=== PATIENT | female | born 1935 | race Caucasian/White ===

== ENCOUNTER 2016-10-22 13:00 | Inpatient (IN) | payer MEDICARE, BC ==
[~2016-10-22] VITALS: Ht 160 cm; Wt 66.8 kg
--- NOTE | ~2016-10-22 | HP ---
PATIENT'S NAME: TIM DANIELLE [facility] AGE: 81 Y [address] ROOM: [address] [address] LOCATION: [facility] ADMIT DATE: 10/22/2016 History & Physical DISCHARGE DATE: FAMILY PHYSICIAN: Jada Salazar MD ATTENDING PHYSICIAN: PATRICK RAI DATE OF SERVICE: CHIEF COMPLAINT: Leukocytosis and 1 set of a blood culture positive for gram-positive rods from the outside facility and the outside facility is concerned about meningitis; therefore, the patient has been sent over here for further workup. HISTORY OF PRESENT ILLNESS: This is an 81-year-old, female, who has a longstanding history of hypertension, on multiple medications including clonidine, who was recently changed from p.o. clonidine to clonidine patch and her blood pressure went up, up to 300 during the change from p.o. to clonidine patch. The patient was complaining of headache, this happened last Thursday, October 20, 2016, and the patient went to the emergency room because of the headache and blood pressure in the 300 at the outside facility, and the patient was admitted over there in [place] for hypertensive crisis. The patient was put back on the clonidine p.o. tablets and also put on several medications including IV labetalol drip followed by nitroglycerin drip and also hydralazine p.r.n. Eventually blood pressure was able to be controlled down to the 140. However, she also was found to have a leukocytosis and 1 set of blood culture was obtained, which grew gram-positive rods; therefore, there was a concern about possible meningitis from Listeria. Therefore, a CT of the brain was performed in [place] on October 21, 2016, and it showed a right occipital ventricular shunt in place. No change in ventricular size compared to September 05, 2015. No evidence of acute intracranial abnormality. The patient has a history of normal pressure hydrocephalus and underwent a ventriculoperitoneal shunt few years ago. The patient also had an x-ray of the head performed on October 21, 2016, showed no catheter disruption. She also had a KUB on October 21, 2016, showed that the right occipital ventricular shunt in place. No catheter disruption. The tip overlies the pelvis. No focal consolidation. No effusion. No pneumothorax. No destructive bony lesion. 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 The blood culture that grew positive for gram-positive rods was performed on October 20, 1016, and is still preliminary. I tried to ask the Pamela if 2 sets were drawn or just 1 set, but they could not really tell me the answer, because they did not know. White blood cell was found to be 18.5 on October 22, 2016, with an absolute neutrophil count elevated at 15.76. Because of the concern for meningitis, the patient was sent over here for a higher level of PATIENT'S NAME: TIM DANIELLE [facility] AGE: 81 Y [address] ROOM: [address] [place], [place] [address] LOCATION: [facility] ADMIT DATE: 10/22/2016 History & Physical DISCHARGE DATE: FAMILY PHYSICIAN: Jada Salazar MD ATTENDING PHYSICIAN: PATRICK RAI. During my interview, the patient is asymptomatic and does not look septic. Denies any headache, denies any neck stiffness, denies any photophobia, and denies any nausea or vomiting. Upon further questioning, the patient has been having headache when her blood pressure went up to 300 from the hypertensive urgency at that time on admission to [facility]. When she was on nitroglycerin drip, her headache also continued; however, when they stopped the nitroglycerin today this morning, the headache went away after given morphine. Upon further questioning, the patient's daughter at the bedside told me that last night when she was in [facility], she became confused where she described as talking nonsense, but not slurred speech, but just confused and did not know where she was and a bit restless as well. I asked the daughter if she behaved like this every night which could be delirium, but the daughter was not quite sure. The patient has no recollection whatsoever about the confusion that she was having last night. Currently, she is alert and oriented x3 and in no acute distress. REVIEW OF SYSTEMS: As mentioned in the history of present illness. All other systems reviewed and negative except those mentioned in the history of present illness. PAST MEDICAL HISTORY: 1. Rheumatoid arthritis. 2. Coronary artery disease, status post stent x1 in 2010. 3. Diabetes insipidus. 4. Hypertension. 5. Normal pressure hydrocephalus, status post ventriculoperitoneal shunt in 2013. 6. Constipation. 7. Depression. 8. Obstructive sleep apnea, noncompliant on CPAP. 9. Gastroesophageal reflux disease. ALLERGIES: 1. ISAI INHIBITOR AND ARB (ANGIOEDEMA). 2. SULFA (RASH). 3. IV CONTRAST (ANGIOEDEMA). HOME MEDICATIONS: 1. Desmopressin 1 spray to nose b.i.d. 2. Trazodone 50 mg at bedtime p.o. 3. Methotrexate 15 mg p.o. every 7 days. PATIENT'S NAME: TIM DANIELLE [facility] AGE: 81 Y [address] ROOM: [address] [place] [id number] LOCATION: [facility] ADMIT DATE: 10/22/2016 History & Physical DISCHARGE DATE: FAMILY PHYSICIAN: Jada Salazar MD ATTENDING PHYSICIAN: PATRICK RAI 4. Lopressor 200 mg p.o. daily. 5. Folic acid 1 mg p.o. b.i.d. 6. Calcium carbonate 600 mg p.o. daily. 7. Aspirin 81 mg p.o. daily. 8. Colace 100 mg p.o. b.i.d. 9. Multivitamin 1 tablet p.o. daily. 10. Clara 180 mg p.o. daily. 11. Calcium polycarbophil 1250 mg p.o. daily. 12. Protonix 40 mg p.o. daily. 13. Cozaar 100 mg p.o. at bedtime. 14. Vitamin D 1000 units p.o. daily. 15. Tylenol 650 mg p.o. every 6 hours p.r.n. for pain or fever. 16. Flonase 1 spray to nose b.i.d. 17. Nitroglycerin 0.4 mg sublingual every 5 minutes p.r.n. for chest pain. 18. Zofran 4 mg p.o. every 6 hours p.r.n. for nausea or vomiting. 19. Clonidine 0.3 mg transdermal patch every 7 days. SOCIAL HISTORY: The patient denies any cigarette, alcohol, or illegal drug use. PAST SURGICAL HISTORY: 1. Status post drug-eluting stent x1 in 2010. 2. Status post ventriculoperitoneal shunt in the past. 3. Status post lower back surgery in the past. 4. Status post left carotid endarterectomy in the past. FAMILY HISTORY: Father from stroke at advanced age. Mother from old age from a cause that she could not remember. PHYSICAL EXAMINATION: VITAL SIGNS: At the time of my dictation, blood pressure 181/77, temperature 98.8, heart rate 74, respirations 14, and saturation 100% on 2 L nasal cannula. Pain 0/10. GENERAL APPEARANCE: Alert and oriented x3, in no acute distress. The patient is not in distress. The patient does not look acutely ill or septic. HEENT: Pupils equal, round, and reactive to light. Extraocular muscles intact. Visual field intact in both eyes. Anicteric sclerae. Nasal turbinates are normal bilaterally. Moist oral mucosa. No oral thrush. NECK: No JVD. No neck stiffness. Brudzinski sign negative. No carotid bruits. No cervical lymphadenopathy. CARDIOVASCULAR: Regular rate and rhythm. Normal S1, S2. No murmur, no rubs, no gallops. RESPIRATORY: Clear. Chest wall nontender to palpation. ABDOMEN: Soft, nontender, nondistended, normal bowel sounds, no PATIENT'S NAME: TIM DANIELLE [facility] AGE: 81 Y [address] ROOM: [address] [address] LOCATION: [facility] ADMIT DATE: 10/22/2016 History & Physical DISCHARGE DATE: FAMILY PHYSICIAN: Jada Salazar MD ATTENDING PHYSICIAN: PATRICK RAI hepatosplenomegaly. EXTREMITIES: No edema in upper or lower extremities. SKIN: She does have a petechia type of rash in her bilateral upper extremity all the way from the hand, all the way to mid arm. This is not pruritic. She said this happened about 2 days ago. MUSCULOSKELETAL: No joint pain. No muscle pain. Range of motion intact. NEUROLOGIC: Grossly nonfocal. Brudzinski and Kernig sign negative. LABORATORY DATA: Laboratory data from the outside facility today shows sodium 139, potassium 3.7, chloride 98, anion gap 16.2, carbon dioxide 28, glucose 108, BUN 17, creatinine 0.7, and GFR 80. Calcium 9.4, total protein 6.6, globulin 3.2, albumin 3.4, AST 35, ALT 32, alkaline phosphatase 76, and total bilirubin 0.7. White blood cells 18.5, hemoglobin 12.5, hematocrit 36.6, MCV 91.3, and platelet 276. IMAGES STUDY AND MIGHT MICROBIOLOGY STUDY: Refer to history of present illness. ASSESSMENT/PLAN: 1. Hypertensive urgency. She has no symptoms right now, therefore her hypertension is classified as hypertensive urgency. There is no end- organ damage either at the moment. Her blood pressure currently is 200, she has been having this problem since last Friday, it has been quite a few days; therefore, the plan is not to lower the blood pressure too fast. I would not lower more than 25% in the 1st for 24 hours. Therefore, her goal today will be 150-160 in the next 24 hours. I will start her on the IV labetalol p.r.n. and IV hydralazine p.r.n. with holding parameter. Check blood pressure every 2 hours and document in the [employer]. I will stop her clonidine patch and put her on the clonidine p.o. tablet as how she was taking before and also add Toprol-XL p.o. 50 mg every night and also amlodipine 10 mg p.o. every morning. Check blood pressure every 2 hours and titrate as necessary. 2. Questionable meningitis: She does not look septic. She does not have any symptoms that go with meningitis. I think her meningitis which is very low likelihood and the blood culture probably is likely from contamination. Pamela could not tell me if there are 2 sets of blood culture or just 1 set, because they could not find the report of the other set of blood culture. Probably, the blood culture could be a contamination; however, in the setting of leukocytosis and she is on immunosuppression, she takes immunosuppressants for her rheumatoid arthritis, therefore, she is classified as an immunosuppressed patient. To clear all doubts, I will go ahead and do a lumbar puncture. 2 sets of blood cultures had already been obtained. She was already given 1 dose of IV vancomycin, 1 dose of IV ceftriaxone, and 1 dose of IV ampicillin prior to coming here per PATIENT'S NAME: TIM DANIELLE [facility] AGE: 81 Y [address] ROOM: [id number] [place], [place] [address] LOCATION: [facility] ADMIT DATE: 10/22/2016 History & Physical DISCHARGE DATE: FAMILY PHYSICIAN: Jada Salazar MD ATTENDING PHYSICIAN: PATRICK RAI verbal order given by me. Now having seen her, she does not look she has meningitis, she looks too well to have meningitis, but just to be sure, I will go ahead and do the lumbar puncture just to be safe. For now, I will continue her regimen but with IV vancomycin, IV cefepime, and also IV ampicillin empirically covering for the meningitis including a possibility of Listeria. I will get an ID consult tomorrow as well because it is Friday. Further plan depends on clinical course. She looks too well, therefore, I am not going to cover with IV acyclovir given that she has no neurologic deficits, she has no seizure activity, she has no confusion at the moment. Further plan depends on clinical course. 3. History of normal pressure hydrocephalus, status post ventriculoperitoneal shunt: No active issue. CT of the head showed the shunt is intact. There is no finding to suggest acute hydrocephalus. 4. Diabetes insipidus: Continue the desmopressin. 5. DVT prophylaxis. The patient will be on Lovenox subcu. CODE STATUS: She is a full code. Time spent on the day of admission 40 minutes including chart review, interviewing and examining the patient, addressing all the questions and concerns that the patient had, and going over the plan of care with the patient, nursing staff, and the patient's family members at the bedside. PATRICK RAI MD CC/modl /[id number] D: 850 T: HISTORY & PHYSICAL
--- NOTE | ~2016-10-22 | PUL ---
PATIENT'S NAME: TIM DANIELLE [facility] AGE: 81 Y [address] ROOM: [place] [address] LOCATION: [facility] ADMIT DATE: 10/23/2016 Pulmonary DISCHARGE DATE: 10/29/2016 FAMILY PHYSICIAN: Jada Salazar MD ATTENDING PHYSICIAN: Fabio Sargent NAME OF PROCEDURE: Overnight Pulse Oximetry DATE OF PROCEDURE: October 282016 REASON FOR EXAM: Nocturnal Hypoxemia RESULTS: The test was performed on room air while on patient's own CPAP machine. The recording time was 9 hours, 47 minutes, and 36 seconds, with a total valid sampling time of 9 hours, 38 minutes, and 24 seconds. The highest pulse was 93, lowest pulse 64, with a mean pulse of 75. The highest SpO2 was 98%, lowest SpO2 was 85%, with a mean SpO2 was 93.5%. The patient spent 6 minutes and 24 seconds with SpO2 less than 89%, representing 1.1% of the total sleep time. The desaturation event index was normal at 4.9. PHYSICIAN INTERPRETATION: The patient has significant but mild nocturnal hypoxia and would qualify for supplemental oxygen as per Medicare criteria. OLEKSANDR EMANUEL MD RFOmaira/ks /[id number] dtt: 11/01/16 1524 , OLEKSANDR EMANUEL dtd: 11/01/16 1054
--- NOTE | ~2016-10-22 | CON ---
PATIENT'S NAME: TIM DANIELLE [facility] AGE: 81 Y [address] ROOM: [address] [place], [place] [address] LOCATION: [facility] ADMIT DATE: 10/23/2016 Consultation DISCHARGE DATE: FAMILY PHYSICIAN: Jada Salazar MD ATTENDING PHYSICIAN: PATRICK RAI DATE OF CONSULTATION: 10/23/2016 REFERRING PHYSICIAN: Garrett Berumen MD REASON FOR CARDIOLOGY CONSULT: Chest pain. HISTORY OF PRESENT ILLNESS: This is an 81-year-old female, admitted with a leukocytosis and concern for a meningitis. She was also admitted with a hypertensive emergency. She had positive blood cultures drawn in [place], [place], and was transferred to [facility] for higher level of care and further evaluation. Her history includes coronary artery disease with stenting [place] [address] Baker. She has had a most recent office visit with him in [place], [place], where she states she underwent an echocardiogram and was stable from a cardiac standpoint other than her transitioning blood pressure medications recently. Her other history includes hypertension and heart murmur. She also complains of some recent nausea and headache. She recently underwent an EGD and colonoscopy, which showed gastroparesis, but she was not started on any medications at this time for that. She has a history of normal pressure hydrocephalus and does have a shunt in place. At the time of this consult, her main complaint is having upper epigastric pressure, which she describes as "felt like I was deflating." This, the patient was noted after she was given IV hydralazine as well as IV nitroglycerin for her hypertension. At this time, she is resting comfortably in bed. She does have a nonproductive cough, but denies further chest pain or pressure as well as palpitations, presyncope, syncope, or nausea. PAST MEDICAL HISTORY: 1. Coronary artery disease. 2. Hypertension. 3. Obstructive sleep apnea with CPAP use. 4. GERD. 5. Gastroparesis. 6. Rheumatoid arthritis. 7. History of diabetes insipidus. 8. Normal pressure hydrocephalus with a ventriculoperitoneal shunt, which was placed in 2013. 9. History of depression. PAST SURGICAL HISTORY: 1. Coronary artery stenting, last in 2010. [facility]GE: 81 Y [address] ROOM: [address] [address] LOCATION: [facility] ADMIT DATE: 10/23/2016 Consultation DISCHARGE DATE: FAMILY PHYSICIAN: Jada Salazar MD ATTENDING PHYSICIAN: PATRICK RAI 2. Ventriculoperitoneal shunt. 3. Left carotid endarterectomy. 4. Lower back surgery. FAMILY HISTORY: The patient's father had a history of stroke. Her mother had a history of uterine cancer. She also has an uncle, who due to a myocardial infarction. SOCIAL HISTORY: The patient denies ever using tobacco. She also denies alcohol or illicit drug use. CURRENT MEDICATIONS: 1. Heparin IV per ACS protocol. 2. Vancomycin 1.25 grams IV every 18 hours. 3. DDAVP intranasally twice daily. 4. Flonase 50 mcg intranasally b.i.d. 5. Aspirin 81 mg p.o. daily. 6. Catapres 0.2 mg p.o. twice daily. 7. Colace 100 mg p.o. twice daily. 8. Cozaar 100 mg p.o. daily. 9. Desyrel 50 mg p.o. daily in the evening. 10. FiberCon 2 tablets p.o. daily. 11. Folic acid 1 mg p.o. twice daily. 12. Lipitor 80 mg p.o. daily. 13. Lopressor 25 mg p.o. twice daily. 14. MiraLax 17 grams p.o. daily. 15. Norvasc 5 mg p.o. daily in the evening. 16. Os-Kushal 500 mg p.o. daily. 17. Protonix 40 mg p.o. daily. 18. Multivitamin 1 tablet p.o. daily. 19. Vitamin D 1000 units p.o. daily. MEDICATION ALLERGIES: 1. ISAI inhibitors and angiotensin receptor blockers. Both of them cause angioedema. 2. Sulfa causing upset stomach. REVIEW OF SYSTEMS: A 12-point review of systems evaluated and negative except for those listed in the HPI. DIAGNOSTICS: CMS evaluation shows a sodium of 137, potassium 3.6, BUN of 20, creatinine PATIENT'S NAME: TIM DANIELLE [facility] AGE: 81 Y [address] ROOM: [address] [place], [place] [address] LOCATION: [facility] ADMIT DATE: 10/23/2016 Consultation DISCHARGE DATE: FAMILY PHYSICIAN: Jada Salazar MD ATTENDING PHYSICIAN: PATRICK RAI 0.6, glucose of 101, and a magnesium of 2.0. CBC evaluation shows a white blood cell count of 13, hemoglobin 12.1, hematocrit 36.6, and a platelet of 228. Cardiac enzymes show a CPK of 232, then 158; CK-MB of 2.7 and 3.3; and troponin I of less than 0.04 and 0.66. PHYSICAL EXAMINATION: VITAL SIGNS: Temperature 98.3, pulse 71, respirations 16, blood pressure 112/56, and O2 saturation 94% on 3 L nasal cannula. The patient weighs 68.4 kg. SKIN: [place], warm, and dry. She does have some noted petechiae to her bilateral lower arms. No warmth or tenderness noted. ENT: Oral mucosa is pink and moist. NECK: No jugular venous distention noted. Does have the presence of a carotid bruit bilaterally with the left being greater than the right. CHEST: Respirations are even and slightly labored. She does have a nonproductive cough. Lungs sounds are diminished, bilateral bases. HEART: Regular rate rhythm. Normal S1 and S2. Does have the presence of a 2/6 diastolic murmur. ABDOMEN: Soft and nontender. No femoral bruits noted. MUSCULOSKELETAL: Gait is normal. EXTREMITIES: Peripheral pulses palpable. No clubbing, cyanosis, or edema. PSYCH: Alert and oriented. Mood and affect are appropriate. IMPRESSION AND PLAN: Per Dr. Berumen. 1. Chest pain and pressure with a mildly elevated troponin I. She does have notation of ST depressions noted in leads V4, V5, and V6 on her EKG. We will continue to trend her cardiac enzymes as well as recent echocardiogram to fully evaluate changes of her ST changes. We will also continue her heparin drip. 2. Coronary artery disease with history of stenting. She is currently on guideline-directed medical therapy with aspirin, statin, and beta- ree. She was recently evaluated by her primary storage solutions architect, Dr. Baker, and we will get a copy of his last office note as well as the echocardiogram that he did to fully evaluate her current cardiac and previous cardiac status. 3. Hypertension. Was previously in the hypertensive emergency, but has been managed well with IV nitroglycerin and hydralazine. She is currently on p.o. Catapres as well as Cozaar and beta-ree. 4. Hyperlipidemia, currently on statin. 5. Rule out meningitis. Plan for her to see Infectious Disease consult today as well as currently being under the care of the Hospitalist Service. 6. History of normal pressure hydrocephalus with shunt placement. CT scan showed her intraventricular pressures are stable. PATIENT'S NAME: TIM DANIELLE [facility] AGE: 81 Y [address] ROOM: [place] [address] LOCATION: [facility] ADMIT DATE: 10/23/2016 Consultation DISCHARGE DATE: FAMILY PHYSICIAN: Jada Salazar MD ATTENDING PHYSICIAN: PATRICK RAI 7. History of a left carotid endarterectomy. We will proceed with a repeat echocardiogram at this time to fully evaluate ejection fraction as well as to look for wall motion abnormalities. We will also plan to proceed with a Lexiscan stress test in the a.m. to fully evaluate myocardial perfusion imaging. We will check a plasma catecholamine level as well as a plasma metanephrines. We will continue to monitor, evaluate, and treat as appropriate. Thank you for this consult. Thank you for allowing [facility] to interact in the care of this patient. LINA FRIEND APRN FOR MD NEREIDA NICHOLS/modl /[id number] d: 10/24/167 t: 11/03/16 1052, CONSULTATION REPORT
--- NOTE | ~2016-10-22 | ECHO ---
Transthoracic Echocardiography Report (TTE) Demographics Patient Name TIM DANIELLE Date of Study 10/23/2016 Patient Number [id number] Visit Number [id number] Date of 1935 Room Number G6221 Gender Female Number Age 81 year(s) Referring Martin Elias MD Burrer Hand Gisselle Stoner RVT, Physician [place] Sotelo [facility] Emilee Ritter MD Physician Interpreting Efstratiou Senior It Assistant Physician Fifi Mar MD Supervising Ordering Efstratiou MD/MLP Physician Fifi Mar MD Nurse Stress Cash Analyst Conclusions Contractility Score Summary Normal Left Ventricular contractility was noted. Summary The estimated left ventricular ejection fraction is 65-70%. The left ventricle is normal in size . Diastolic assessment reveals Grade I diastolic dysfunction. Mild mitral regurgitation by color Doppler. Mild mitral annular calcification. The aortic valve is mildly sclerotic. There is mild aortic stenosis by the Continuity Equation. The peak velocity is 2.73 m/s, the mean gradient is 15 mmHg, and the valve area based on the continuity equation is 1.16 cm2, stroke volume index is 36 ml/m2. Trivial tricuspid regurgitation by color Doppler. Possibly moderate pulmonary hypertension Procedure Type of Study TTE procedure:2D Echocardiogram, M-Mode, Doppler , Color Doppler. Procedure Date Date: 10/23/2016 Start: 01:18 PM Study Location: Inpatient Portable Technical Quality: Adequate visualization Indications:Elevated cardiac enzymes. Appropriate Use Criteria: 9 Patient Status: Routine HR: 74 bpm BP: 105/55 mmHg M-Mode/2D Measurements LV Diastolic Dimension: 4.07 cm LV Systolic Dimension: 2.45 cm LV Septum Diastolic: 1.18 cm LV PW Diastolic: 1.02 cm AO Root Dimension: 2.6 cm Cardiac Output: 4.58 l/min LA Dimension: 3.9 cm LVOT: 1.7 cm LVOT VTI: 27.3 cm RV Base: 2.32 cm LV Stroke volume: 61.93 ml RV Length: 6.86 cm TAPSE: 2.52 cm TDI-S': 13.5 cm/s Doppler Measurements AV Peak Velocity: 2.73 m/s MV Peak E-Wave: 1.32 m/s AV Peak Gradient: 29.81 mmHg MV Peak A-Wave: 1.1 m/s AV Mean Gradient: 15 mmHg MV E/A Ratio: 1.2 LVOT Peak Velocity: 1.24 m/s MV P1/2t: 75 msec TR Gradient:18.32 mmHg PV Peak Velocity: 0.98 m/s Estimated RAP:8 mmHg PV Peak Gradient: 3.85 mmHg Estimated RVSP: 26 mmHg Estimated PASP: 26.32 mmHg E' Septal Velocity: 0.06 m/s A' Septal Velocity: 0.06 m/s E' Lateral Velocity: 0.07 m/s A' Lateral Velocity: 0.08 m/s Findings Left Ventricle The left ventricle is normal in size . Diastolic assessment reveals Grade I diastolic dysfunction. Right Ventricle Normal right ventricle structure and function. Left Atrium The left atrium is moderately dilated by LA volume index measurement. Right Atrium Normal right atrial size. IVC measures 1.65 cm with partial inspiratory collapse. Mitral Valve Mild mitral regurgitation by color Doppler. Mild mitral annular calcification. Aortic Valve The aortic valve is mildly sclerotic. There is mild aortic stenosis by the Continuity Equation. The peak velocity is 2.73 m/s, the mean gradient is 15 mmHg, and the valve area based on the continuity equation is 1.16 cm2, stroke volume index is 36 ml/m2. Tricuspid Valve Trivial tricuspid regurgitation by color Doppler. Possibly moderate pulmonary hypertension Pulmonic Valve Normal pulmonic valve structure and function. Pericardial Effusion No evidence of pericardial effusion. Miscellaneous Visualized portions of the aortic root and ascending aorta appear normal in size. Pleural Effusion No evidence of pleural effusion. Contractility Score LV regional wall motion:(0-Non visualized 1-Normal 2-Hypokinesis 3-Akinesis 4-Dyskinesis 5-Aneurysm) Signature dtt: Garrett Berumen dtd: 10/23/16 1318 Physician Self Edit
--- NOTE | ~2016-10-22 | DS ---
PATIENT'S NAME: TIM DANIELLE [facility] AGE: 81 Y [address] ROOM: [place] [address] LOCATION: [facility] ADMIT DATE: 10/23/2016 Discharge Summary DISCHARGE DATE: 10/29/2016 FAMILY PHYSICIAN: Jada Salazar MD ATTENDING PHYSICIAN: Fabio Sargent PRIMARY DIAGNOSES: 1. Accelerated hypertension. 2. Bacteremia. 3. Cgy-PM-ttzvvhfrw myocardial infarction. 4. Obstructive sleep apnea. 5. Coronary artery disease. 6. Normal pressure hydrocephalus, status post ventriculoperitoneal shunt placement. 7. Diabetes insipidus. 8. Rheumatoid arthritis. 9. Depression/anxiety. OPERATIONS OR PROCEDURES: Nuclear stress test was performed on 10/24/2016, negative for any ischemia. HISTORY OF PRESENTING ILLNESS AND REASON FOR ADMISSION: Please refer to the H and P dictated on 10/22/2016. HOSPITAL COURSE: The patient was admitted to the hospital as noted above with a presumptive diagnosis of accelerated hypertension and elevated cardiac enzymes. She was seen and evaluated by the Hospitalist Service. Cardiology was also consulted. Blood cultures from an outlying facility did reveal what initially appeared to be a Gram-positive nataly. This eventually was changed to Gram-negative nataly, although it was not formally identified. Infectious Disease was consulted. It was felt that this was likely a contaminant given the circumstances and the absence of any obvious infection. She was, however, maintained on antibiotic therapy to cover for that possibility. The organism was referred to the [facility] laboratory for formal identification. Those results were not yet available. Dr. Mckenna recommended to treat for 14 days with oral Levaquin. Cardiology did assess and evaluate the patient. Blood pressures were somewhat labile and tended to be persistently hypertensive at nighttime. She did receive intermittent doses of IV antihypertensive medication. Cardiac stress testing was carried out as described above. She was recommended for continued medical management. She received some physical therapy, occupational therapy, and her clinical PATIENT'S NAME: TIM DANIELLE [facility] AGE: 81 Y [address] ROOM: [place] [address] LOCATION: [facility] ADMIT DATE: 10/23/2016 Discharge Summary DISCHARGE DATE: 10/29/2016 FAMILY PHYSICIAN: Jada Salazar MD ATTENDING PHYSICIAN: Sargent,Mccarthy condition was relatively stable except for persistent problems with managing her blood pressure. Cardiology did make some additional recommendations for blood pressure medication adjustments. By the end of the 8th day of her hospital stay, it was felt she would be stable enough for discharge to home with home health followup and continued blood pressure monitoring as well as outpatient management and followup for her antihypertensive regimen. I did discuss this with Dr. Salazar, her primary care physician. We did perform overnight trend ox with the patient's own CPAP machine. She admitted that she had not been compliant with this, but seemed to express the understanding and agreed to be compliant moving forward. DISCHARGE INSTRUCTIONS: DIET: Cardiac prudent as tolerated. ACTIVITY: As tolerated. MEDICATIONS: 1. Amlodipine 10 mg p.o. at bedtime. 2. Aspirin 81 mg p.o. daily. 3. Atorvastatin 80 mg p.o. at bedtime. 4. Calcium 600 mg p.o. daily. 5. Fiber-Lax 1250 mg p.o. daily. 6. Cholecalciferol 1000 units p.o. daily. 7. Multivitamin with minerals and lutein daily. 8. ICaps daily. 9. Clonidine 0.2 mg p.o. b.i.d. 10. Desmopressin nasal spray 1 spray each nostril b.i.d. 11. Colace 100 mg p.o. b.i.d. 12. Flonase nasal spray 1 spray each nostril daily. 13. Folate 1 mg p.o. daily. 14. Hydralazine 100 mg p.o. b.i.d. 15. Levofloxacin 500 mg p.o. daily through 11/10/2016. 16. Losartan 100 mg p.o. at bedtime. 17. Methotrexate 15 mg p.o. every 7 days. 18. Metoprolol 100 mg p.o. b.i.d. 19. Protonix 40 mg p.o. daily. 20. Trazodone 50 mg p.o. at bedtime. 21. Acetaminophen 650 mg p.o. q.6 hours p.r.n. 22. Clara 180 mg p.o. daily. 23. Nitroglycerin 0.4 mg sublingually every 5 minutes p.r.n. chest pain. 24. Zofran 4 mg p.o. q.6 hours p.r.n. nausea. FOLLOWUP: She will follow up with Dr. Salazar in 5 to 7 days. She will follow PATIENT'S NAME: TIM DANIELLE [facility] AGE: 81 Y [address] ROOM: [address] [address] LOCATION: [facility] ADMIT DATE: 10/23/2016 Discharge Summary DISCHARGE DATE: 10/29/2016 FAMILY PHYSICIAN: Jada Salazar MD ATTENDING PHYSICIAN: Fabio Sargent up with Dr. Akbar, Cardiology in 2 to 4 weeks. CONDITION ON DISCHARGE: Fair. Total time spent on discharge process 60 minutes. BRENT J MD JAKOB VILLASEÑOR/maddy /[id number] d: 10/30/16 0604 t: 11/02/16 1642, DISCHARGE SUMMARY
--- NOTE | ~2016-10-22 | OR ---
PATIENT'S NAME: LEORA DANIELLE [facility] AGE: 81 Y [address] ROOM: [place] [address] LOCATION: [facility] ADMIT DATE: 10/22/2016 OR/Procedure Report DISCHARGE DATE: FAMILY PHYSICIAN: Jada Salazar MD ATTENDING PHYSICIAN: PATRICK RAI SURGEON: Sarahi Cordova CRNA FLUID DYNAMICIST: DATE OF PROCEDURE: 10/22/2016 LUMBAR PUNCTURE The patient of Dr. RaiJuan Daniel Corey was admitted yesterday with hypertension and headache. She also has a history of diabetes insipidus and rheumatoid arthritis. Lumbar puncture was ordered to rule out meningitis. 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 A CT scan indicated no disruption in the catheter and no change in ventricular size. Lumbar puncture was performed in the patient's room. She was placed on her left side in the position after risks and benefits were discussed in detail. On her right side, the lower back was marked, prepped and draped in a sterile fashion. The lumbar region was injected with 1% lidocaine, 2 mL at the site of the lumbar puncture. At that point, a 24-gauge Sprotte needle was advanced into the cerebrospinal fluid. Opening pressures were performed. Opening pressures measured 14 cm H2O. Once opening pressures were obtained, 3 vials with 3 mL each were obtained. The cerebrospinal fluid was clear. Procedure was done without complication or paresthesia. The patient tolerated the procedure very well. Cerebral spinal fluid was sent to the lab in the first vial; cell, glucose, protein cultures and Gram stain. In the second vial; LDH, PCR for HSV-1 and lactate. In the 3rd, acid bacillus and adenosine deaminase. Each vial was labeled and hand delivered to the lab. As was mentioned, the patient tolerated the procedure well. Band-Aid was applied to the lumbar area. No complaints were obtained. SARAHI CORDOVA CRNA DMS/modl /[id number] d: 10/23/16 0121 t: 02/18/17 0831, OPERATIVE SUMMARY
--- NOTE | ~2016-10-22 | CON ---
PATIENT'S NAME: TIM DANIELLE [facility] AGE: 81 Y [address] ROOM: [address] [place] [id number] LOCATION: [facility] ADMIT DATE: 10/23/2016 Consultation DISCHARGE DATE: FAMILY PHYSICIAN: Jada Salazar MD ATTENDING PHYSICIAN: PATRICK RAI DATE OF CONSULTATION: 10/23/2016 REFERRING PHYSICIAN: Garrett Berumen MD REASON FOR CONSULTATION: Positive blood cultures, rule out meningitis. HISTORY OF PRESENT ILLNESS: Ms. Danielle is an 81-year-old female with a history of rheumatoid arthritis, who has been on long-standing methotrexate. She also has a long- standing history of hypertension that requires multiple medications to control this. She has recently changed from oral clonidine to a clonidine patch. On Friday, she noted that she felt like she does when her blood pressure gets really high, she felt flushed, a headache, and had some nausea. She went into the emergency room and was admitted for hypertensive crisis. Apparently, her systolic blood pressure was 300 range. She was treated emergently there and admitted to the hospital. She had a leukocytosis. She had blood cultures drawn that initially were reported positive for gram-positive rods. There was concern because she had a headache and a leukocytosis and a positive blood culture for gram-positive rods, and maybe she had Listeria meningitis. Thus, she was transferred to [facility]. She underwent a lumbar puncture here which was relatively benign with 2 nucleated cells, a protein that was elevated at 160, but a normal glucose of 59. Because of her positive blood cultures, she was started on antibiotics, and ID was asked to comment. The patient reports that she was feeling fine before that acute event on Friday. She had not had fevers, chills, or sweats. She had not had any preceding headache prior to her blood pressure spiking. She says she has been through these events before and knew that her blood pressure was the problem. She has been afebrile here. I called and spoke with the [facility] at [place]. They have a Vitek-2 system that was not able to identify the organism. They do say something is growing in both sets. The tech told me that it look like gram-variable rods. They could not really discern if they were gram-positive or gram-negative. The patient has not had congestion, cough, or shortness of breath. She has had some chest pain. No abdominal pain, nausea, vomiting, or diarrhea. No urinary complaints. Again, she was feeling well up until the sudden onset of her blood pressure being elevated was noted. 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 PATIENT'S NAME: TIM DANIELLE [facility] AGE: 81 Y [address] ROOM: [place] [address] LOCATION: [facility] ADMIT DATE: 10/23/2016 Consultation DISCHARGE DATE: FAMILY PHYSICIAN: Jada Salazar MD ATTENDING PHYSICIAN: PATRICK RAI MEDICATIONS: She has been started on vancomycin, cefepime, and ampicillin since her arrival here yesterday on 10/22. ALLERGIES: LISTED TO SIAI INHIBITORS AND ARBS, WHICH APPARENTLY CAUSE ANGIOEDEMA; SULFA, WHICH CAUSES A RASH; AND IV CONTRAST WHICH APPARENTLY CAUSES ANGIOEDEMA. SOCIAL HISTORY: She does not smoke, drink, or use illicit drugs. She lives in the [facility]. FAMILY HISTORY: Father had a stroke at an advanced age, and mother lived to her old age as well and she is not sure why she . REVIEW OF SYSTEMS: All remaining review of systems are otherwise negative with the pertinent positives and negatives in the HPI. PHYSICAL EXAMINATION: GENERAL: She looks in no acute distress, sitting up in a chair. Awake, alert, and oriented x3 and completely nontoxic. VITAL SIGNS: She has been afebrile since she has been here with a T-max of 98.8, blood pressure is controlled now at 112/56, it was as high as 204/11. Pulse is 71, respirations are 16. HEENT: NC/AT. EOMI. PERRLA. NECK: Supple. LUNGS: Clear. HEART: Regular. ABDOMEN: Soft and nontender. EXTREMITIES: Without cyanosis, clubbing, or edema. SKIN: She has petechial rash on both of her arms as well as a band-like rash where her blood pressure cuff had been on both upper arms. It looks like it is related to the pressure associated with taking her blood pressure. She has not had any other rash at all. LABORATORY DATA: White count is 13, hemoglobin 12.1, platelet count 228. CSF was as noted. Creatinine is 0.6. PATIENT'S NAME: TIM DANIELLE [facility] AGE: 81 Y [address] ROOM: [place] [address] LOCATION: [facility] ADMIT DATE: 10/23/2016 Consultation DISCHARGE DATE: FAMILY PHYSICIAN: Jada Salazar MD ATTENDING PHYSICIAN: PATRICK RAI Blood cultures here are clear. ASSESSMENT AND PLAN: Positive blood cultures. I spoke with [facility], and they cannot identify the organism on their Vitek machine. They are sending it [place] for further data. CSF was negative for infection on all of her initial studies. She is afebrile. We will await more D and just continue her on the vancomycin for now since it was in both cultures. However, I expect that these are going to be contaminants and nothing significant. Vast majority of the time, gram- positive rods are contaminants. She had no preceding illness to suggest that she was becoming ill and does not have any symptoms now that would suggest that she is ill or has meningitis. We will see what this turns out to be, and more recs to follow. Please call ID once we have identification of the organisms and we can proceed from there. If it is diphtheroids, then we can probably stop. If it is bacillus, then it is truly in both cultures, then we have a different thing to figure out what might be going on there. It could be a gram-negative nataly as well. But again, we do not have any good source of that. If she has more fever or shows signs of infection, please call as long we can assist with further treatment from there. But at this point in time, there does not appear to be any evidence of infection. MD ISAAC SINHA/modl /[id number] d: 10/23/161814 t: 10/24/16 0951, CONSULTATION REPORT
--- NOTE | ~2016-10-22 | ESTC ---
Cardiac Perfusion Imaging Demographics Patient Name SHASHI Mar Gender Female Patient Number [id number] Race Visit Number [id number] Ethnicity Corporate ID Room Number G6221 Accession Number [id number] Height 63 inches Date of 1935 Weight 150 pounds A Interpreting Gemma Kelley Date of study 10/24/2016 Physician Supervising /KAYA Lopez APRN NM Technologist Castillo Grimm Ordering Physician [place] Calix Stress Caulkins Iwona Mar MD metal wire technician RVT Stress ECG Reading Katharine Lopez APRN Nurse Alix Leonard RN Physician Procedure Procedure Type: Nuclear Stress Test:Pharmacological, Lexiscan, Cardiolite Stress Test Procedure Start time: 10/24/2016 09:30 Indications: History of CAD. Risk Factors The patient risk factors include:prior PCI; Conclusions Summary Perfusion Images: The overall quality of the study is fair, due to gastrointestinal tracer uptake. Left ventricular cavity is noted to be normal on the stress and rest studies. There is no evidence of abnormal lung activity. The right ventricle is not visualized and cannot be assessed. Stress SPECT images and Rest SPECT images demonstrate homogenous tracer distribution throughout the myocardium except for minimal decrease uptake in the area involving the anterior wall most likely due to soft tissue attenuation; however cannot exclude minimal ischemia in the anterior wall. Gated SPECT imaging reveals normal myocardial thickening and wall motion. The left ventricular ejection fraction was calculated to be 76%. Impression ECG portion of stress test is clinically negative for ischemia by diagnostic criteria. Minimal decrease uptake in the area involving the anterior wall is most likely due to soft tissue attenuation; however cannot exclude minimal ischemia in the anterior wall Overall left ventricular systolic function was normal without regional wall motion abnormalities. This is a low risk stress test Stress Protocols Resting ECG Sinus rhytm Pre-stress physical exam: Patient assessed by Bronson NEWMAN prior to testing. Predicted HR: 138 bpm HR response: Appropriate BP response: Appropriate Reason for termination:Infusion complete ECG Findings No ECG changes suggestive of ischemia. Arrhythmias No rhythm abnormality. Symptoms Shortness of breath. Complications Procedure complication: None. Stress Interpretation Appropriate hemodynamic response to Lexiscan. No significant ST-T wave changes with Lexiscan. ECG portion is negative for ischemia by diagnostic criteria. Will correlate with nuclear images. Imaging Results High risk findings Summed scores - Summed stress score: 9 - Summed rest score: 5 - Summed difference score: 4 Stress ejection Ejection fraction:76 % EDV :97 ml ESV :23 ml Stroke volume :74 ml LV mass :131 gr Imaging Protocols Rest Stress Isotope:Tc99m Sestamibi IV Isotope: Tc99m Sestamibi IV Isotope dose:10.8 mCi Isotope dose:31.3 mCi Date:10/24/2016 07:20 Date:10/24/2016 09:00 Technique: SPECT Technique: Gated Supine SPECT Supine IV remains in place after procedure. Procedure Medications - Regadenoson (Lexiscan) 0.4 mg IV over 10-15 sec. I.V. 0.4 mg. Medical History Admission Data Admission date: 10/23/2016 Admission Time: 10:45 Hospital Status: Inpatient. Signatures dtt: ROMELIA WEBER dtd: 10/24/16 0930 Physician Self Edit
[2016-10-22] MEDS ORDERED: DDAVP 0.0110 MCG/0.1 NOSE (14:17)
[2016-10-22] MEDS ORDERED: DESYREL50 MG PO (14:31)
[2016-10-22] MEDS ORDERED: METHOTREXATE2.5 MG PO (14:32)
[2016-10-22] MEDS ORDERED: LOPRESSOR100 MG PO (14:33)
[2016-10-22] MEDS ORDERED: CALCIUM600 MG PO (14:33)
[2016-10-22] MEDS ORDERED: FOLIC ACID1 MG PO (14:33)
[2016-10-22] MEDS ORDERED: COLACE100 MG PO (14:34)
[2016-10-22] MEDS ORDERED: ASPIRIN LO-DOSE81 MG PO (14:34)
[2016-10-22] MEDS ORDERED: ICAPS TABLET1 EACH PO (14:35)
[2016-10-22] MEDS ORDERED: VITRUM SENIOR1 EACH PO (14:35)
[2016-10-22] MEDS ORDERED: FIBER LAX625 MG PO (14:36)
[2016-10-22] MEDS ORDERED: ALLEGRA180 MG PO (14:36)
[2016-10-22] MEDS ORDERED: PROTONIX40 MG PO (14:37)
[2016-10-22] MEDS ORDERED: VITAMIN D1000 UNIT PO (14:37)
[2016-10-22] MEDS ORDERED: COZAAR100 MG PO (14:37)
[2016-10-22] MEDS ORDERED: TYLENOL ARTHRI650 MG PO (14:39)
--- NOTE | 2016-10-22 14:39 | NUR ---
Significant Event: 81 year old female admitted to NTU at 1405. Patient was admitted to [facility] on 10/20/16 with hypertensive crisis and confusion. Blood cultures in [place] noted gram positive rods. Hx of shunt place by Dr. Montejo in 2013. Transferred from [place] to [facility] per ambulance for services of Dr. Sargent (hospitist) to rule out meningitis. Rec'd rocephin, ampicillin and vancomycin en route from [facility] to [facility]. Patient is a/o x 3. denies pain. answering admission questions appropriately.
[2016-10-22] MEDS ORDERED: FLONASE 50 MCG/16 GM NOSE (14:41)
[2016-10-22] MEDS ORDERED: NITROSTAT0.4 MG SL (14:45)
[2016-10-22] MEDS ORDERED: ONDANSETRON ODT4 MG PO (14:46)
[2016-10-22] MEDS ORDERED: CATAPRES0.2 MG PO (14:47)
[2016-10-22 16:45] LABS: BILIRUBIN URINE NEGATIVE (NEGATIVE); BLOOD URINE 25 /UL (NEGATIVE); GLUCOSE URINE NEGATIVE (NEGATIVE); KETONE URINE NEGATIVE (NEGATIVE); LEUKOCYTES URINE NEGATIVE /UL (NEGATIVE); NITRITE URINE NEGATIVE (NEGATIVE); PROTEIN URINE 100 mg/dL (NEGATIVE); UROBILINOGEN URINE NORMAL (NORMAL)
[2016-10-22 16:55] LABS: BASOPHIL % 0.2 %; EOSINOPHIL % 0.2 %; HEMATOCRIT 37.1 % (30.0-46.0); HEMOGLOBIN 12.3 g/dL (10.0-15.0); IMMATURE GRANULOCYTE # 0.1 K/uL (0.0-0.3); IMMATURE GRANULOCYTE % 0.6 %; LYMPHOCYTE # 1.1 K/uL (0.8-4.0); LYMPHOCYTE % 7.1 %; MCH 30.8 pg (27.0-34.0); MCHC 33.2 gm/dL (32.0-36.5); MONOCYTE # 1.2 K/uL (0.0-1.0); MONOCYTE % 7.6 %; MPV 10.2 fl (9.4-12.4); NEUTROPHIL # (ANC) 13.5 K/uL (1.8-7.8); NEUTROPHIL % 84.3 %; NRBC % 0 /100WBC (0-0.00); PLATELET COUNT 259 K/uL (150-450); RDW-CV 14.1 % (11.9-14.6)
[2016-10-22 16:56] LABS: RBC 3.99 M/uL (3.00-5.00)
[2016-10-22 17:06] LABS: COLOR URINE YELLOW (YELLOW); TURBIDITY URINE CLEAR (CLEAR)
[2016-10-22 17:06] LABS: PROTIME 10.7 SECONDS (9.6-11.1); PTT 30 SECONDS (25-32)
[2016-10-22 17:08] LABS: AMORPHOUS URINE 1+ (NEGATIVE); BACTERIA URINE RARE (NEGATIVE); MUCUS URINE 1+ (NEGATIVE)
[2016-10-22 17:14] LABS: ALBUMIN 3.1 gm/dL (3.5-5.0); ALK PHOS 73 IU/L (33-138); ALT 25 IU/L (12-78); ANION GAP 9.6 (10.0-19.0); AST 32 IU/L (10-40); BLOOD UREA NITROGEN 20 mg/dL (6-24); CALCIUM 8.6 mg/dL (8.5-10.5); CHLORIDE 101 mMol/L (96-110); CO2 30 mMol/L (22-32); CREATININE 0.6 mg/dL (0.5-1.1); ESTIMATED GFR (MDRD EQUATION) > 60; POTASSIUM 3.6 mMol/L (3.7-5.1); SODIUM 137 mMol/L (135-145); TOTAL BILIRUBIN 0.5 mg/dL (0.0-1.5); TOTAL PROTEIN 6.8 g/dL (6.0-8.4)
--- NOTE | 2016-10-22 19:19 | NUR ---
Significant Event: dr. maloney admitted patient to rule out meningitis. lumbar puncture ordered and obtained. CSF lab results pending. patient is a/o x 3. denies pain. Continues in droplet isolation for possible meningitis. transfers with gait belt and one to two assist. IV to left upper arm saline locked. Cardiac diet.
[2016-10-22 20:51] LABS: CPK 232 IU/L (21-215)
--- NOTE | 2016-10-23 04:07 | NUR ---
Significant Event: The patient is Alert and Oriented x3. Drowsy at times. Moves all extremities spontaneously and to command. Generalized weakness noted. Up with 1-2 Assist, gaitbelt, and walker. Incontinent void this shift. PIV to the Left AC infusing Intermittent antibiotics. PIV to the Right AC saline locked. The patient was hypertensive at the beginning of the shift 204/111, gave Hydralazine at 1911, about 10 minutes after the hydralazine the patient had complaints of heaviness in her chest, Tele called and said she was having ST Depression. Dr Sargent Notified STAT EKG done and Cardiac Enzymes drawn. Order for IV Nitro gtt- started at 2130. Blood pressures dropped down to 90's 50's order to stop the Nitro gtt at 2252. VSS after gtt off. Generalized pain gave Tylenol at 2143. The patient is in ISO until they can Rule Out Meningitis. Cardiac Diet. Bandaid to her back from LP site. On 3L Oxygen. She has a Dry Cough. Follow up:
[2016-10-23 06:06] LABS: BASOPHIL % 0.3 %; EOSINOPHIL # 0.1 K/uL (0.0-0.5); EOSINOPHIL % 0.4 %; HEMATOCRIT 36.6 % (30.0-46.0); HEMOGLOBIN 12.1 g/dL (10.0-15.0); IMMATURE GRANULOCYTE # 0.1 K/uL (0.0-0.3); IMMATURE GRANULOCYTE % 0.5 %; LYMPHOCYTE # 1.2 K/uL (0.8-4.0); LYMPHOCYTE % 9.1 %; MCH 31.3 pg (27.0-34.0); MCHC 33.1 gm/dL (32.0-36.5); MCV 94.6 fl (83.0-98.0); MONOCYTE # 0.9 K/uL (0.0-1.0); MONOCYTE % 7.1 %; MPV 10.1 fl (9.4-12.4); NEUTROPHIL # (ANC) 10.8 K/uL (1.8-7.8); NEUTROPHIL % 82.6 %; NRBC % 0 /100WBC (0-0.00); PLATELET COUNT 228 K/uL (150-450); RBC 3.87 M/uL (3.00-5.00); RDW-CV 14.4 % (11.9-14.6)
--- NOTE | 2016-10-23 15:09 | NUR ---
Significant Event: a/o x 3. denies pain. no c/o chest pain. no c/o dizziness or lightheadedness. IV to right anticubital infusing heparin at 900 units/hr. next ptthp at 1999. Final Troponin T reported to Benitez Alcantar APRN with no new orders. IV to left anticubital saline locked. I.Rigo JACKSON saw patient today and discontinued 2 of three antibiotics. Orders pending to call when culture results are rec'd per fax from [facility]. Meningitis ruled out and patient taken out of droplet isolation. Continues on 2-3 liters of oxygen. Tele with NSR. Ambulates with walker and one assist. NPO after 2200 for fasting labs at 0600 and for lexiscan (stress test) in the morning. continue heparin drip- do not stop for stress test
[2016-10-24 02:19] LABS: BASOPHIL % 0.3 %; EOSINOPHIL # 0.3 K/uL (0.0-0.5); EOSINOPHIL % 3.8 %; HEMATOCRIT 30.4 % (30.0-46.0); IMMATURE GRANULOCYTE # 0.1 K/uL (0.0-0.3); IMMATURE GRANULOCYTE % 0.6 %; LYMPHOCYTE # 1.1 K/uL (0.8-4.0); LYMPHOCYTE % 12.2 %; MCH 31.2 pg (27.0-34.0); MCHC 32.9 gm/dL (32.0-36.5); MCV 94.7 fl (83.0-98.0); MONOCYTE # 0.8 K/uL (0.0-1.0); MONOCYTE % 8.5 %; MPV 10.4 fl (9.4-12.4); NEUTROPHIL # (ANC) 6.6 K/uL (1.8-7.8); NEUTROPHIL % 74.6 %; NRBC % 0 /100WBC (0-0.00); RBC 3.21 M/uL (3.00-5.00); RDW-CV 14.3 % (11.9-14.6); WBC 8.8 K/uL (4.0-11.0)
[2016-10-24 02:21] LABS: PLATELET COUNT 178 K/uL (150-450)
[2016-10-24 02:30] LABS: ANION GAP 12.7 (10.0-19.0); BLOOD UREA NITROGEN 20 mg/dL (6-24); CALCIUM 8.1 mg/dL (8.5-10.5); CHLORIDE 106 mMol/L (96-110); CO2 24 mMol/L (22-32); CREATININE 0.5 mg/dL (0.5-1.1); ESTIMATED GFR (MDRD EQUATION) > 60; MAGNESIUM 2.1 mg/dL (1.3-2.6); POTASSIUM 3.7 mMol/L (3.7-5.1); SODIUM 139 mMol/L (135-145)
--- NOTE | 2016-10-24 04:27 | NUR ---
Significant Event: Patient is alert and oriented x 3. Denies numbness, tingling, dizziness or chest pain. C/O headache and requested Tylenol at 2200. Pleasant and cooperative with cares and uses call light appropriately. Moves spontaneously and follows commands. PERRL. Generalized weakness. 2+ pulses. SR. VSS. Afebrile. NPO since 2200. Jazielan this AM and possible heart cath and (depending if intervention) transfer to PCU. Heparin gtt infusing at 900 units/hr--next PTTHP at 1600. IV to right AC is infusing heparin gtt and also has a SL to left AC with intermittent antibiotics. Sometimes incontinent of urine. Bowel sounds active. Last BM 10/19/16--MDs aware and started Miralax yesterday. Blood cultures pending from [facility]--call ID when results are back. On 3L O2 via NC last night (titrated up from 2). Patient is a mouth breather so placed in mouth while sleeping. Lungs clear and diminished. 1PA, gait belt, walker. Follow up: john this AM with possible heart cath/intervention/transfer, NPO
--- NOTE | 2016-10-24 15:08 | NUR ---
Significant Event: A/O X3, 1 assist/gait belt/walker, Lexiscan today. up in chair most of shift. showered. daughter @ bedside. Heparin IV R)AC, saline lock L)AC. Vancomycin. incontinent of urine at times. o2 2l/nc. lungs dim BLL. uses I.S. constant cough. Follow up: PTTHP @ 1600 CPAP at night.
--- NOTE | 2016-10-24 15:18 | NUR ---
OT 1510 pm: Pt just got into the shower per nursing. Will attempt to evaluate the pt tomorrow 10/24/16, Elli OTR/L
--- NOTE | 2016-10-25 03:38 | NUR ---
Significant Event: Patient is alert and oriented x3. VSS. Generalized weakness-moderate strength. Pupils are 3mm and brisk. Denies N/T, pain, and RIVAS. Hypertensive- labetalol and hydralazine given this shift for SBP greater than 160's-170's. Lungs are clear to C/D- 2-3L of O2 per nasal cannula. Removed cpap in the night-stating it was too loud to wear. Does get SOB with talking. Last BM 10/19- medications on board and given. Incont of urine-refused to use the bathroom and had staff change her in bed. Cardiac diet. PIV's in the left and right AC-sl'd. 10/20- gram positive rods-Vanco started. Up with 1AJOSE L and walker. Follow up: Discharge to swing bed when stable.
--- NOTE | 2016-10-25 11:10 | NUR ---
CONSULT FOR GASTROPARESIS DIET EDUCATION RECEIVED. PT HAS QUESTIONS ABOUT GASTROPARESIS FOR RD. REVIEWED DIET EDUCATION MATERIAL WITH PATIENT AND DAUGHTER. RECOMMEND SMALL, FREQUENT MEALS WITH LESS FAT AND FIBER. ALSO COMPLAINT OF CONSTIPATION, ON FIBER PILLS PER PT. INTAKE 25-100% NOTED. FAIR APPETITE, FOOD IS TASTELESS PER PT. ON CARDIAC DIET. AGREED TO TRY SNACK BETWEEN MEALS FOR GASTROPARESIS. ANSWERED PT'S QUESTIONS, ENCOURAGEMENT GIVEN. LEFT DIET EDUCATION MATERIAL AND CONTACT INFORMATION WITH PATIENT. WILL ASSESS AGAIN ON LENGTH OF STAY.
--- NOTE | 2016-10-25 12:56 | NUR ---
Introduced self and CM role to Leora and her daughter who was at bedside. Leora tells me that she lives in [place] at [facility] and it is her ultimate goal to return there when she is ready. She does use a FWW/4WW at baseline and also has a cane if needed. She does have CPAP at night. I let her know that there was question as to whether she could [facility] or if she would need a short skilled stay at the [facility] in [place]. She was open to going to [facility] for a short time before returning back to [facility]. I let her and daughter know that I would contact [facility] to see if they had any female beds and then fax them a referral if they had an open female bed. Daughter states she will be here to transport her whenever they could accept. She is staying at the [facility] and comes over to see with her mom each day. I then called over to [facility], asked for Sarah, she was out of the office so I talked with Evy. Evy states that they do have an open female bed and would like for me to fax her a referral. I let her know that she may be ready for dismissal as soon as tomorrow. Evy tells me that they will review the information and then get back to me on if/when they can accept. Packet started, orders printed, no ID Screen needed, Dr. Quiroz update to the possible plan for transfer to [facility] tomorrow and thinks it is a good idea. Will continue to follow and assist.
--- NOTE | 2016-10-25 13:07 | NUR ---
Significant Event: PT ALERT AND ORIENTED X3. TRANSFERS WITH 1-ASSIST/GAIT BELT/WALKER. VOIDS PER BATHROOM AT TIMES. INCONTINENT XL AMOUNTS OF URINE. LAST BM ON 10/19; PASSING FLATUS AND BOWEL SOUNDS PRESENT. PT STATES THAT SHE DOES NOT FEEL UNCOMFORTABLE AND WAS RECENTLY DIAGNOSED WITH GASTROPARESIS. USUALLY HAS A BM EVERY SEVERAL DAYS. MIRALAX GIVEN AT 0810; NO RESULTS YET. GOOD APPETITE. HYPERTENSIVE WITH SBP'S IN THE 170'S. SCHEDULED BP MEDICATIONS GIVEN AND BP DOSES WERE CHANGED BY CARDIOLOGY TODAY. PRN HYDRALAZINE GIVEN X1. WEANED TO ROOM AIR THIS MORNING; WEARS CPAP AT NIGHT-REFUSED TO WEAR LAST NIGHT DUE TO THE "MACHINE BEING TOO LOUD" AND THE PT DID NOT LIKE THE FIT OF THE MASK. FREQUENT, DRY COUGH. IV'S TO RIGHT AND LEFT AC SALINE LOCKED. Follow up: DISCHARGE TO [facility] WHEN BP'S STABILIZE.
--- NOTE | 2016-10-26 02:34 | NUR ---
Significant Event: Patient is alert and oriented x3. VSS. Moderate strength with some generalized weakness. PERRLA. Pupils are 3mm and brisk. Hypertensive- labetalol and hydralazine PRN given. Incont of urine. Wearing 3L of O2 per nasal cannula d/t patient not wanting to wear our CPAP because it is too loud. Last BM 10/19- active- medications given. PIV in right AC and Left AC- sl'd- scheduled ABX. Cardiac diet. Up with 1A with walker and GB. SCDS on. Takes pills whole and one at a time- likes to have them laid out on a napkin on bedside table so she can take them. Follow up: Swing bed Friday.
[2016-10-26 06:43] LABS: ALBUMIN 2.5 gm/dL (3.5-5.0); BLOOD UREA NITROGEN 10 mg/dL (6-24); CALCIUM 8.4 mg/dL (8.5-10.5); CHLORIDE 99 mMol/L (96-110); CO2 25 mMol/L (22-32); CREATININE 0.4 mg/dL (0.5-1.1); ESTIMATED GFR (MDRD EQUATION) > 60; PHOSPHORUS 2.1 mg/dL (2.5-4.9); SODIUM 135 mMol/L (135-145)
[2016-10-26 06:44] LABS: ANION GAP 14.4 (10.0-19.0); POTASSIUM 3.4 mMol/L (3.7-5.1)
--- NOTE | 2016-10-26 15:25 | NUR ---
Significant Event: A/O X3, 1 assist/gait belt/walker, ambulates in cruz with PT, up in chair most of shift, daughter @ bedside. O2 1l/nc, lungs dim BLL, non-productive cough, generalized weakness. incontinent at times of urine. saline lock L)AC & R)AC. good appetite. Follow up: CPAP at night (has been refusing) plan for [facility] Friday.
--- NOTE | 2016-10-27 04:41 | NUR ---
Significant Event: The patient is Alert and Oriented x3. Denies Numbness and Tingling. Moves all extremities spontaneously and to command. Up with 1 Assist gaitbelt and walker. Incontinent at times. On 3 Liters of oxygen per NC. PIV to her Right and Left AC saline locked. Hypertensive at times gave Labetalol at 2130 and Hydralazine at 0255- both brought her SBP down to the 130's. All other vital signs stable. Complaints of a slightly headache gave Tylenol at 2134. Large BM this shift. Follow up:
--- NOTE | 2016-10-27 10:19 | NUR ---
A-SCREENED D/T LOS HT: 63 IN WT: 69.4 KG BMI: 27.1. (+)BM. PLAN TO D/C TO [facility] ON 10/29 LABS: NA 135, K+ 3.4, GLU 165, BUN 10, PHARMACY DELIVERY DRIVER 0.4, ALB 2.5 MEDS: APRESOLINE, PRN BOWEL MEDS, VIT D, FIBERCON, OSCAL, MVI, PROTONIX, MORPHINE, FOLIC ACID, COLACE, LIPITOR, TRANDATE INJ., VANCO. DIET RX: 2-3 GM NA. APPETITE IS GOOD. PO INTAKE 50-100% EST NUTR NEEDS: [id number] KCALS (20-25 KCALS/KG) 55-76 GM PROTEIN (0.8-1.1 GM/KG) 1 ML FLUID/KCAL D-NOT AT NUTRITION RISK; NO NUTRITION DX IDENTIFIED I-CONTINUE W/CURRENT DIET RX M/E-WILL ASSIST NEEDED
--- NOTE | 2016-10-27 15:55 | NUR ---
Significant Event: A/O X3, 1 assist/gait belt/walker, ambulates in cruz, up in chair most of shift, daughter @ bedside. incontinent of urine @ times, BM x2 this shift. good appetite. saline lock R)AC & L)AC. occassional non-productive cough. lung Dim BLL, Room air during the day. Follow up: O2 or CPAP at night. Plan for [facility] tomorrow
--- NOTE | 2016-10-28 04:53 | NUR ---
Significant Event: The patient is Alert and Oriented x3. Denies Numbness and Tingling. Moves all extremities spontanously and to command. Up with SBA, Gaitbelt and Walker to the bathroom. Complaints of a headache gave Tylenol at 2051. Hypertensive at times gave Hydralazine x2 this shift the last being at 2223, I also gave Labetalol x1 at 2053. All other VSS. On 2L oxygen while asleep, refused to wear Hospital CPAP. PIV to the Right and Left AC saline locked. Incontinent at times. Dry cough. Follow up: [facility]
--- NOTE | 2016-10-28 12:01 | NUR ---
1010 Call to Sarah at [facility], let her know that I had just faxed an update on Leora to them. Also let her know we would anticipate her needing PT/OT services as well as BP monitoring. Mel Rooney was looking at her chart so I updated her to the above so she was aware what we were working on. Updated daughter as well. 1145 Call back from Sarah, she looked over the information and states that she thinks that Leora is doing to well to come to them just for therapies at this time. She did request additional information re:BPs. She was going to then get this infront of Leora's MD, Dr. Salazar to see what she thought about her BP issues. 1205 Sarah called and let me know that at this time, Dr. Salazar feels like her BP needs to be under better control before they would even accept her. She feels like she is to acute for SWB. Sarah also states that once those are better under control, she would recommend that she go back to [facility]. with [facility] following as she is doing to well to qualify for [facility] in reguards to her therapy needs. She also suggested that the family put her name on the waiting list for [facility] or even a respite room at [facility]. I will update Mel Rooney to this and also Leora and her daughter and see what everyone's thoughts are. Will continue to follow and assist.
--- NOTE | 2016-10-28 13:15 | NUR ---
Significant Event: PT ALERT AND ORIENTED X3. EQUAL STRENGTH X4. TRANSFERS WITH STAND-BY ASSIST/GAIT BELT/WALKER. VOIDS PER BATHROOM AT TIMES. INCONTINENT LARGE AMOUNTS OF URINE. HYPERTENSIVE WITH SBP'S RANGING FROM 140'S-170'S. SCHEDULED BP MEDS GIVEN THIS AM. WEARS O2 AT 2 LITERS PER NASAL CANNULA AT NIGHT. ROOM AIR DURING THE DAY AND HAS NEEDED 1 LITER WHEN NAPPING AT TIMES. BILATERAL CALF PUMPS IN PLACE. IV'S TO R)AND L)AC'S SALINE LOCKED. HAS COMPLAINED OF A SLIGHT HEADACHE; HAS DENIED ANY NEED FOR PRN PAIN MEDICATIONS THIS SHIFT. REGULAR DIET; GOOD APPETITE. MIRALAX GIVEN AT 1206 PER PT'S REQUEST. LAST BM WAS ON ENAMEL MACHINE OPERATOR TODAY. DAUGHTER HAS BEEN AT BEDSIDE ALL SHIFT. Follow up: PLAN TO TRANSFER TO [facility] WHEN MEDICALLY STABLE.
--- NOTE | 2016-10-29 04:08 | NUR ---
Significant Event: Patient is alert and oriented x3. PERRLA. VSS. Denies pain, RIVAS, and N/T. Patient did experience hypertension at first assessment, scheduled PO medications given- did not have to use IVP meds. Incont of urine-wears brief and pad. Trace edema to lower extremities. Room air to 1L. Patient is currently on a CPAP and a trend ox this shift. Lungs are clear to C/D in bases. Last BM 10/28. PIV in left and right AC-SL'd. Low sodium diet. Takes pill whole and one at a time-does like to have them layed out on a napkin. Up with SBA. SCDS on. PO levaquin. Tylenol for pain. Follow up: Back to [place] when ready with home health.
[2016-10-29] MEDS ORDERED: NORVASC10 MG PO (12:39)
[2016-10-29] MEDS ORDERED: LIPITOR80 MG PO (12:39)
[2016-10-29] MEDS ORDERED: APRESOLINE50 MG PO (12:44)
[2016-10-29] MEDS ORDERED: LEVAQUIN500 MG PO (12:45)
--- NOTE | 2016-10-29 14:05 | NUR ---
Social visit with Leora and her daughter, plan is for her to return back to [facility] today with [facility] follow up, jasbirer will drive. Discharge orders were faxed by Val on [facility] to [facility] and Dr. Salazar (PCP). Also faxed over discharge medications to Debora at [facility] prior to her leaving, daughter will drop off the hard copies when they get to town later today. I phoned [facility], and talked with Melanie, let her know that Leora was going to discharge today so they would need to follow up with tomorrow. She voiced understanding to this, and plans to connect with her tomorrow to come out and do evaluations. Leora and daughter voice understanding to this. No other questions, needs or concerns. Will continue to follow and assist.
--- NOTE | 2016-10-29 15:48 | NUR ---
Patient's IV's DC'd. Patient belongings gathered and sent with patient. Discharge instructions reviewed with patient and daughter. No further questions at this time. Taken to [facility] per wheelchair. Daughter transferred her back to [place] via personal vehicle.
[2017-03-20] MEDS ORDERED: BENEFIBER1 EAC1 PO (15:59)
[2017-03-20] MEDS ORDERED: MIRALAX17 GM PO (15:59)
[2017-03-20] MEDS ORDERED: COREG25 MG PO (16:03)
[2017-03-20] MEDS ORDERED: SPIRONOLACTONE25 MG PO (16:06)
== END 2016-10-29 15:30 | disposition home health service (06) | DRG 982 ==
LOC: GNTU 13:00
PROVIDERS: Internal Medicine; Nurse Practitioner; Nurse Practitioner Family; ADMIT Internal Medicine
PROC: 009Y3ZX Drainage of Lumbar Spinal Cord, Percutaneous Approach, Diagnostic (ICD-10-PCS; principal; 2016-10-22)
DX: I21.4 Non-ST elevation (NSTEMI) myocardial infarction (principal); R78.81 Bacteremia; E23.2 Diabetes insipidus; J96.10 Chronic respiratory failure, unspecified whether with hypoxia or hypercapnia; G91.2 (Idiopathic) normal pressure hydrocephalus; I16.0 Hypertensive urgency; M06.9 Rheumatoid arthritis, unspecified; Z98.2 Presence of cerebrospinal fluid drainage device; I25.10 Atherosclerotic heart disease of native coronary artery without angina pectoris; Z95.5 Presence of coronary angioplasty implant and graft; I10 Essential (primary) hypertension; F32.9 Major depressive disorder, single episode, unspecified; G47.33 Obstructive sleep apnea (adult) (pediatric); K21.9 Gastro-esophageal reflux disease without esophagitis; Z91.19 Patient's noncompliance with other medical treatment and regimen; E78.5 Hyperlipidemia, unspecified; K59.00 Constipation, unspecified; F41.9 Anxiety disorder, unspecified
CPT/HCPCS: A9270; A9500; G0378; J0290; J0360; J0692; J1644; J1650; J1940; J2270; J2785; J3370; J7040; J7050; J8610

== ENCOUNTER → 2017-02-28 | Outpatient (CLI) | payer MEDICARE, BC ==
[~2017-02-28] MED LIST: ALLEGRA180 MG PO; APRESOLINE50 MG PO; ASPIRIN LO-DOSE81 MG PO; BENEFIBER1 EAC1 PO; CALCIUM600 MG PO; CATAPRES0.2 MG PO; COLACE100 MG PO; COREG25 MG PO; COZAAR100 MG PO; DDAVP 0.0110 MCG/0.1 NOSE; DESYREL50 MG PO; FIBER LAX625 MG PO; FLONASE 50 MCG/16 GM NOSE; FOLIC ACID1 MG PO; ICAPS TABLET1 EACH PO; LEVAQUIN500 MG PO; LIPITOR80 MG PO; LOPRESSOR100 MG PO; METHOTREXATE2.5 MG PO; MIRALAX17 GM PO; NITROSTAT0.4 MG SL; NORVASC10 MG PO; ONDANSETRON ODT4 MG PO; PROTONIX40 MG PO; SPIRONOLACTONE25 MG PO; TYLENOL ARTHRI650 MG PO; ULTRAM50 MG PO; VITAMIN D1000 UNIT PO; VITRUM SENIOR1 EACH PO
== END | disposition disaster alternative care site (69) ==
LOC: LNHI 14:35
DX: I25.10 Atherosclerotic heart disease of native coronary artery without angina pectoris (principal); R60.9 Edema, unspecified

== ENCOUNTER → 2017-02-28 | Outpatient (CLI) | payer MEDICARE, BC ==
--- NOTE | ~2017-02-28 | ENPV ---
Carotid Duplex Study Demographics Patient Name TIM DANIELLE Date of Study 02/28/2017 Patient Number [id number] Gender Female Date of 1935 Age 81 Visit Number [id number] Height Weight Number Room Number BSA BMI Referring [place] [employer] Interpreting Parth Mansfield MD Physician A Physician Physician Ordering [place] [employer] Lining Stamper Physician A Radiation Monitor Vanna Saucedo BS, RT Conclusions Summary The right internal carotid artery has mild, 1-39%, plaque and stenosis. The left internal carotid artery has mild, 1-39%, plaque and stenosis. The right vertebral artery is present with antegrade flow. The left vertebral artery is present with antegrade flow. Calcific plaque at the bulb on the right. History of endarterectomy on the left. Procedure Type of Study: Cerebral:Carotid, Carotid Doppler Bilateral. Indications for Study:Bruit. Patient Status:Routine. Study Location:Vascular Lab. Technical Quality:Adequate visualization. Velocities are measured in cm/s ; Diameters are measured in cm Carotid Right Measurements Carotid Left Measurements + +--------+--------+ + + + +--------+ --------+ + + !Location !PSV !EDV !Angle !%Stenosis ! !Location !PSV ! EDV !Angle !%Stenosis ! + +--------+--------+ + + + +--------+ --------+ + + !Prox CCA !81 !7 !60 ! ! !Prox CCA !82 ! 9 !60 ! ! + +--------+--------+ + + + +--------+ --------+ + + !Dist CCA !65 !9 !60 ! ! !Dist CCA !76 ! 12 !60 ! ! + +--------+--------+ + + + +--------+ --------+ + + !Prox ICA !97 !19 !60 ! ! !Prox ICA !116 ! 29 !60 ! ! + +--------+--------+ + + + +--------+ --------+ + + !Dist ICA !56 !12 !44 ! ! !Dist ICA !72 ! 16 !18 ! ! + +--------+--------+ + + + +--------+ --------+ + + !Prox ECA !84 ! !60 ! ! !Prox ECA !125 ! !60 ! ! + +--------+--------+ + + + +--------+ --------+ + + !Vertebral !44 ! !60 ! ! !Vertebral !43 ! !60 ! ! + +--------+--------+ + + + +--------+ --------+ + + !Subclavian !122 ! !60 ! ! !Subclavian !79 ! !60 ! ! + +--------+--------+ + + + +--------+ --------+ + + - There is antegrade vertebral flow noted on the right side. - There is antegrade verte bral flow noted on the left side. - Add'l Measurements:ICAPSV/CCAPSV 1.2.ICAEDV/CCAEDV 2.75. - Add'l Measurements:ICAPS V/CCAPSV 1.42.ICAEDV/CCAEDV 3.09. Signature dtt: SUJATA MORA dtgt: 02/28/17 1554 Physician Self Edit
== END | disposition disaster alternative care site (69) ==
LOC: GCAR 15:18
DX: R09.89 Other specified symptoms and signs involving the circulatory and respiratory systems (principal)

== ENCOUNTER 2017-03-24 07:01 | Day surgery (SDC) | payer MEDICARE, BC ==
[~2017-03-24] VITALS: Ht 160 cm; Wt 73.0 kg
--- NOTE | ~2017-03-24 | OR ---
PATIENT'S NAME: TIM DANIELLE [facility] AGE: 82 Y [address] ROOM: [facility] [place] [address] LOCATION: GPCU ADMIT DATE: 03/24/2017 OR/Procedure Report DISCHARGE DATE: 03/25/2017 FAMILY PHYSICIAN: Jada Salazar MD ATTENDING PHYSICIAN: Imtiaz Sandoval SURGEON: Imtiaz Sandoval DO TELEPHONE REPAIRER: DATE OF PROCEDURE: 03/24/2017 PREOPERATIVE DIAGNOSIS: Second-degree Mobitz type 1 heart block with syncope. POSTOPERATIVE DIAGNOSIS: Second-degree Mobitz type 1 heart block with syncope. PROCEDURE: Insertion of dual-chamber permanent pacemaker via the left subclavian vein. BRIEF HISTORY: Mrs. Danielle is an 82-year-old white female with the above- noted diagnosis. She has been brought to the operative suite today, sterilely prepped and draped in usual fashion for installation of her device. After appropriate IV sedation was achieved, 1% lidocaine was used to infiltrate a skin wheal and deeper tissues in the left infraclavicular space. The subclavian vein was accessed with the patient in Trendelenburg position x2 and guidewires placed under fluoroscopic guidance into the right atrium and incision was created and a pocket was formed. Electrocautery was used for hemostasis and guidewires were brought through the incision, via sheath and dilator assembly, we placed our leads. We began with our ventricular lead which is [employer] Ingevity, model 7741, serial #[id number] is placed in the right ventricular septum at the apex sensing waves, ventricular waveform of 5.5 mV with a voltage threshold of 0.5 V at 0.5 milliseconds with pacing impedance of 1091 ohms. In a similar fashion, we placed our atrial lead, also a [employer] Ingevity lead, model 7740, serial #[id number] placed in right atrial appendage, sensing P-waves of 1.3 mV with a voltage threshold of 0.8 V at 0.5 milliseconds with pacing impedance of 527 ohms. Each lead was then connected to the generator which is a [employer] Essentio, model L111, serial #[id number]. The leads and generator placed into the pocket. Appropriate sensing and pacing was noted. Incision was closed in layered fashion, 2-0 Vicryl and 4-0 Monocryl, and a pressure dressing was applied. The patient was paced at DDDR, lower rate limit of 60 and maximal tracking rate of 130. She was transferred to the recovery area in stable condition. IMTIAZ SANDOVAL DO PATIENT'S NAME: TIM DANIELLE [facility] AGE: 82 Y [address] ROOM: [place] [address] LOCATION: GPCU ADMIT DATE: 03/24/2017 OR/Procedure Report DISCHARGE DATE: 03/25/2017 FAMILY PHYSICIAN: Jada Salazar MD ATTENDING PHYSICIAN: Imtiaz Sandoval/maddy /[id number] d: 03/25/17 1221 t: 03/26/17 1203, OPERATIVE SUMMARY
[~2017-03-24 07:01] MED LIST changes: -ULTRAM50 MG PO
[2017-03-24 08:03] LABS: BILIRUBIN URINE NEGATIVE (NEGATIVE); BLOOD URINE NEGATIVE /UL (NEGATIVE); COLOR URINE YELLOW (YELLOW); GLUCOSE URINE NEGATIVE (NEGATIVE); KETONE URINE NEGATIVE (NEGATIVE); LEUKOCYTES URINE NEGATIVE /UL (NEGATIVE); NITRITE URINE NEGATIVE (NEGATIVE); PROTEIN URINE NEGATIVE (NEGATIVE); TURBIDITY URINE 2+ (CLEAR); UROBILINOGEN URINE NORMAL (NORMAL)
[2017-03-24 08:07] LABS: AMORPHOUS URINE 2+ (NEGATIVE); BACTERIA URINE RARE (NEGATIVE); EPITHELIAL URINE RARE #/HPF (NEGATIVE); RBC URINE NEGATIVE #/HPF (NEGATIVE); WBC URINE RARE #/HPF (NEGATIVE)
[2017-03-24 08:41] LABS: INR - (THERAPEUTIC) 0.96 (0.92-1.07); PROTIME 10.1 SECONDS (9.8-11.4)
[2017-03-24 08:46] LABS: ALBUMIN 3.8 gm/dL (3.5-5.0); ANION GAP 11.8 (10.0-19.0); CALCIUM 9.4 mg/dL (8.5-10.5); CREATININE 0.6 mg/dL (0.5-1.1); PHOSPHORUS 3.3 mg/dL (2.5-4.9); POTASSIUM 3.8 mMol/L (3.7-5.1)
[2017-03-25] MEDS ORDERED: ULTRAM50 MG PO (10:16)
== END 2017-03-25 11:30 | disposition disaster alternative care site (69) ==
LOC: GPCU 07:01 → GSDC 07:01 → GPCU 14:05 → GPOC 15:00 → GSDC 15:00
PROVIDERS: Thoracic Surgery (Cardiothoracic Vascular Surgery)
PROC: 0JH606Z Insertion of Pacemaker, Dual Chamber into Chest Subcutaneous Tissue and Fascia, Open Approach (ICD-10-PCS; principal; 2017-03-24)
PROC: 02H63JZ Insertion of Pacemaker Lead into Right Atrium, Percutaneous Approach (ICD-10-PCS; 2017-03-24)
PROC: 02HK3JZ Insertion of Pacemaker Lead into Right Ventricle, Percutaneous Approach (ICD-10-PCS; 2017-03-24)
DX: I44.1 Atrioventricular block, second degree (principal); I35.0 Nonrheumatic aortic (valve) stenosis; I25.10 Atherosclerotic heart disease of native coronary artery without angina pectoris; K21.9 Gastro-esophageal reflux disease without esophagitis; F32.9 Major depressive disorder, single episode, unspecified; I10 Essential (primary) hypertension; J45.909 Unspecified asthma, uncomplicated; E23.2 Diabetes insipidus; M06.9 Rheumatoid arthritis, unspecified; I25.2 Old myocardial infarction; G47.33 Obstructive sleep apnea (adult) (pediatric); R09.89 Other specified symptoms and signs involving the circulatory and respiratory systems; Z79.899 Other long term (current) drug therapy; Z88.2 Allergy status to sulfonamides; Z88.8 Allergy status to other drugs, medicaments and biological substances; Z98.1 Arthrodesis status
CPT/HCPCS: C1785; C1898; J0690; J2001; J7030; J7050